=== PATIENT | male | born 2000 | race Caucasian/White ===

== ENCOUNTER 2023-07-23 13:38 | Outpatient (RCR) | payer OTHER, SELFPAY | END 2023-07-23 23:59 | disposition home or self-care (01) | LOC: ROT 13:38 | PROVIDERS: ATTENDING PHYSICIAN Internal Medicine Hospice and Palliative Medicine; FAMILY PHYSICIAN Family Medicine | DX: Z73.6 Limitation of activities due to disability (principal); M62.81 Muscle weakness (generalized); C71.9 Malignant neoplasm of brain, unspecified | CPT/HCPCS: 97110; 97112 ==

== ENCOUNTER 2023-12-23 14:01 | Outpatient (RCR) | payer OTHER, SELFPAY | END 2023-12-23 23:59 | disposition home or self-care (01) | LOC: ROT 14:01 | PROVIDERS: ATTENDING PHYSICIAN Internal Medicine Hospice and Palliative Medicine; FAMILY PHYSICIAN Family Medicine | DX: M62.81 Muscle weakness (generalized) (principal); Z73.6 Limitation of activities due to disability; C71.9 Malignant neoplasm of brain, unspecified | CPT/HCPCS: 97014; 97110; 97140; 97535 ==

== ENCOUNTER 2024-03-11 18:48 | Emergency (ER) | payer OTHER, SELFPAY ==
[2024-03-11 18:52] VITALS: BP 119/71
[2024-03-11 19:00] VITALS: BP 120/75
[2024-03-11 19:09] LABS: % Basophils 0.1 % (0-2); % Immature Granulocytes 1.2 % (0-0.5); % Lymphocytes 7.2 % (20.5-51.1); % Neutrophils 79.5 % (42.2-75.2); Absolute Immature Granulocytes 0.1 10^3/uL (0-0.05); Absolute Lymphocytes 0.8 10^3/uL (1.2-3.4); Absolute Monocytes 1.3 10^3/uL (0.1-0.6); Absolute Neutrophils 8.5 10^3/uL (1.4-6.5); Hematocrit 33.9 % (39.0-52.0); Hemoglobin 12.5 g/dL (13.0-18.0); Mean Corp Hgb Conc. 36.9 g/dL (33.0-37.0); Mean Corpuscular Hgb 32.1 pg (27.0-31.0); Mean Corpuscular Volume 86.9 fL (80.0-94.0); Mean Platelet Volume 11.3 fL (7.4-10.4); Nucleated Red Blood Cells % 0 % (-); Platelet Count 123 10^3/uL (130-400); Red Cell Dist. Width 12.3 % (11.5-14.5); White Blood Cell Count 10.7 10^3/uL (4.8-10.8)
[2024-03-11 19:15] LABS: ALT (SGPT) 73 U/L (0-50); AST (SGOT) 40 U/L (17-59); Albumin 3.6 g/dl (3.5-5.0); Alkaline Phosphatase 81 U/L (38-126); Blood Urea Nitrogen 16 mg/dl (9-20); Calcium 9.3 mg/dl (8.4-10.2); Carbon Dioxide 26 mmol/L (22-30); Chloride 96 mmol/L (98-107); Estimated Creatinine Clearance > 125 ml/min; Glucose 91 mg/dl (70-99); Potassium 4.7 mmol/L (3.5-5.1); Sodium 128 mmol/L (135-145); Total Bilirubin 0.3 mg/dl (0.2-1.3); Total Protein 6.2 g/dl (6.3-8.2); eGFR > 60.00
[2024-03-11] MEDS: ATIVAN 1 MG IV (19:27)
--- NOTE | 2024-03-11 19:37 | ED.GENMED ---
History of Present Illness
General
Chief Complaint: Seizure
Source: family (Father)
Exam Limitations: altered mental status
Time Seen by Provider: 03/11/24 19:18
Nursing documentation reviewed up to this point in time: agreed with
History of Present Illness
History of Present Illness:
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 His father reports that he was just discharged from [facility] after
spending several days there to undergo a new IV chemotherapy as well as radiation treatment. He was discharged home today. Shortly after getting home, he was observed to have a seizure. Father describes it as uncontrollable contractions in his
right arm and right leg that lasted at least 10 minutes. His father reports it went away but then came back recurrently. Shortly after arriving to the emergency department, the patient experienced contractions of his right face and head foaming of
the mouth, however, he did not lose responsiveness. His father reports that he has not had a seizure for several years. His father reports that while he was in the hospital at [facility] he did undergo an EEG which showed no
seizure waves, so it was surprising that he had a seizure shortly after getting home. His father reports that ever since the tumor has progressed, the patient is not very lucid or conversational. The patient does not offer much history to me. He
is breathing spontaneously and is alert but is having contractions of his right face, right leg and right arm. 1 mg of Ativan ordered. There is no reported injury or fall from a seizure. Patient arrives by paramedics.
Past History
Past History
ED Past Medical History: Cancer (Astrocytoma) and Other
ED Past Surgical History: Brain
Social History
Tobacco: Other (The patient vapes)
Alcohol: None
Drug: Marijuana
Personal: Single
Living: with family
Employment: Not employed
Family History
Family History: Unable to obtain
Review of Systems
Review of Systems
Allergies reviewed?: Yes
Other source history: family
All Other Systems: Not applicable
Phy Exam
Physical Exam
Physical Exam:
Physical Exam
General: Patient has foam coming out of his mouth. He does make eye contact with me when I speak to him. He appears alert and in no acute distress. Patient having mild right facial contractions
Neck: supple.
Heart: s1/s2 regular rate and rhythm, no murmur. equal radial pulses.
Lungs: no acute respiratory distress.
Abdomen: Soft
Neuro: alert but appears lethargic and barely conversational
Skin: no rash
Psychiatric: well kept.
Extremities: no edema.
Course
Orders/Labs/Results
Orders:
Orders
03/11/24 18:58
CMP [Comprehensive Metabolic Panel] Urgent
Complete Blood Count/With Diff Urgent
03/11/24 19:24
Lorazepam [Ativan] 2 mg .ROUTE .STK-MED ONE
03/11/24 19:27
Lorazepam [Ativan] 1 mg IV NOW STA
Lorazepam [Ativan] 1 mg IV NOW STA
03/11/24 19:32
Levetiracetam Injectable [Keppra] 2,000 mg IV NOW STA
03/11/24 20:08
Lacosamide [Vimpat] 100 mg IV NOW STA
Abnormal Lab Results
03/11/24
18:58
RBC 3.90 L 10^6/uL
(4.70-6.10)
Hgb 12.5 L g/dL
(13.0-18.0)
Hct 33.9 L %
(39.0-52.0)
MCH 32.1 H pg
(27.0-31.0)
Plt Count 123 L 10^3/uL
(130-400)
MPV 11.3 H fL
(7.4-10.4)
Abs Immat Gran (auto) 0.1 H 10^3/uL
(0-0.05)
Absolute Neuts (auto) 8.5 H 10^3/uL
(1.4-6.5)
Absolute Lymphs (auto) 0.8 L 10^3/uL
(1.2-3.4)
Absolute Monos (auto) 1.3 H 10^3/uL
(0.1-0.6)
Immature Gran % 1.2 H %
(0-0.5)
Neutrophils % 79.5 H %
(42.2-75.2)
Lymphocytes % 7.2 L %
(20.5-51.1)
Monocytes % 12.0 H %
(1.7-9.3)
Sodium 128 L mmol/L
(135-145)
Chloride 96 L mmol/L
(98-107)
ALT 73 H U/L
(0-50)
Total Protein 6.2 L g/dl
(6.3-8.2)
03/11/24 18:58
03/11/24 18:58
Vital Signs
Initial and Last Documented VS:
Initial Vital Signs
Pulse Resp BP Pulse Ox
70 16 119/71 98
03/11/24 18:52 03/11/24 18:52 03/11/24 18:52 03/11/24 18:52
Last Documented Vital Signs
Pulse Resp BP Pulse Ox
53 12 108/66 99
03/11/24 22:00 03/11/24 22:00 03/11/24 22:00 03/11/24 22:00
MDM/Problems Addressed
Differential Diagnosis Includes:
Acute on chronic epilepsy, intracranial hemorrhage
MDM/Problems Addressed:
Patient presents with acute seizure
Chronic conditions affecting care:
Given patient has a history of brain tumor, he is at increased risk of recurrent seizures and intracranial bleed
Acute Exacerbation and/or Progression of Chronic Illness:
Patient presents with acute exacerbation of chronic epilepsy
*Pulse Oximetry
Patient hypoxic: no
*Squeak Rattle And Leak Repairer Interpretation
Rate: normal
Interpretation: normal
Rhythm: sinus
*Critical Care Note
Total Time (30-74mins, 75-104mins- exclusive of procedures): 45 minutes
comment:
45 minutes of critical care given to patient including reviewing his blood work, and frequent reassessments to check for recurrent seizure activity, as well as speaking to the patient's oncologist and the neurointensivist at [facility]
Data Reviewed
Review of Other/Old Records Reveals: Radiology Studies (CT head reviewed from 02/24/2019 which shows typical postoperative brain surgery changes)
Source: family (Father, mother) and other (Oncologist, Dr. Goode, at [facility])
Patient Management
Discussion with other providers: Other (Case discussed with Dr. Goode who is the patient's oncologist at [facility]. She is agreeable to the 1 mg of Ativan and recommended that we load the patient with 2 g of IV Keppra and reassess him in 15 minutes
after the load.)
Escalation/DeEscalation of care consider admission/obs:
Decision made to transfer the patient to the neuro ICU at [facility] under the service of Dr. Pathak. Patient's father gave written consent to the transfer and understands risks and benefits.
Patient's seizure activity appears to have subsided
ED Attending Note
-
Portions of this chart may have been created with voice recognition software.� Occasional wrong word or��sound alike� substitutions may have occurred due to the inherent limitations of voice recognition software.
Discharge Plan
Departure
Patient Disposition: Acute Care Hospital
Date of Disposition: 03/11/24
Time of Disposition: 20:13
Condition: Fair
Covid-19: Not Applicable
Discharge Problem:
Recurrent seizure activity
Prescriptions:
No Action
oxcarbazepine 300 MG tablet
300 mg PO BID
Referrals:
UNKNOWN - PT NOT,INTERVIEWE [Family Provider] -
Hospital Transfer
Other hospital: [facility]
I certify that the patient requires transfer: Yes
Discussed case with accepting physician: Dr. Pathak at neuro ICU
Reason for transfer: continuity of care PCP
Interventions
Interventions:
*General Assessment Last Done: 03/11/24 18:52
ED- Fall Risk Assessment Last Done: 03/11/24 19:17
*ED COVID-19 Vaccine History Last Done: 03/11/24 18:52
*Nursing Disposition Last Done: 03/11/24 22:26
ED- Cardiac Assessment Last Done: 03/11/24 19:45
ED- Neurological Assessment Last Done: 03/11/24 19:45
ED- Pulmonary Assessment Last Done: 03/11/24 19:45
Discharge Date and Time
Discharge Date/Time: 03/11/24 22:28
Print Language: BELIZEAN
[2024-03-11] MEDS: KEPPRA 2000 MG IV (19:38)
[2024-03-11 20:00] VITALS: BP 93/51
[2024-03-11] MEDS: VIMPAT 100 MG IV (20:30)
[2024-03-11 21:00] VITALS: BP 104/52
--- NOTE | 2024-03-11 21:04 | EDRN ---
Report called to [phone] to [facility].
[2024-03-11 22:00] VITALS: BP 108/66
== END 2024-03-11 22:28 | disposition short-term general hospital (02) ==
LOC: EMR 18:48
PROVIDERS: Emergency Medicine; EMERGENCY PHYSICIAN Emergency Medicine
DX: G40.909 Epilepsy, unspecified, not intractable, without status epilepticus (principal); F17.290 Nicotine dependence, other tobacco product, uncomplicated
CPT/HCPCS: 99291; 96374; 96375 ×2; 80053; 85025; C9254